=== PATIENT | male | born 1980 | race Caucasian/White ===

== ENCOUNTER 2016-06-29 14:52 | Emergency (ER) | payer MEDICAID ==
--- NOTE | 2016-06-29 15:41 | Emergency Department Record ---
History of Present Illness - General Chief Complaint: Abdominal Pain Stated Complaint: HERNIA Time Seen by Provider: 06/29/16 15:30 Source: Patient Mode of Arrival: Ambulatory - History of Present Illness Initial Comments: The patient states that 7 days ago he was opening up the pool by removing the rolled cover when he dropped it. As he tried to pick it up it was very heavy. Following that he began to have left lower abdominal pain/inguinal region pain. When he is resting the pain level is mild at 3/10. When he lifts, bends, coughs , has BM's, his pain increases to 9-10/10. He wants to know if he has a hernia. He denies f,c,n,v,d,abdominal distention. He had a BM today that was normal, he typically has one every other day. During the straining of the BM his pain became severe. Now it is 3/10. He has no medications, no allergies, and is not a smoker. Onset/Timin -: Week(s) Location: Suprapubic, LLQ Radiation: None Quality: Sharp Consistency: Constant Associated Symptoms: Denies other symptoms - Related Data Home Medications Medication Instructions Recorded Confirmed Last Taken No Home Med [NO HOME MEDS] 06/29/16 06/29/16 Unknown Allergies Allergy/AdvReac Type Severity Reaction Status Date / Time No Known Drug Allergies Allergy Verified 12/10/14 16:22 Travel Screening - Travel/Exposure Within Last 30 Days Have you traveled within the last 30 days?: No - Travel/Exposure Within Last Year Have you traveled outside the [place] in the last year?: No - Additonal Travel Details Have you been exposed to anyone with a communicable illness?: No - Travel Symptoms Symptom Screening: None Review of Systems Reviewed: No additional complaints except as noted below Constitutional: Reports: As per HPI. Denies: Chills, Fever, Malaise, Night sweats, Weakness, Weight change Eyes: Reports: As per HPI. Denies: Eye discharge, Eye pain, Photophobia, Vision change ENT: Reports: As per HPI. Denies: Congestion, Dental pain, Ear pain, Epistaxis , Hearing loss, Throat pain Respiratory: Reports: As per HPI. Denies: Cough, Dyspnea, Hemoptysis, Stridor, Wheezes Cardiovascular: Reports: As per HPI. Denies: Arrhythmia, Chest pain, Dyspnea on exertion, Edema, Murmurs, Orthopnea, Palpitations, Paroxysmal nocturnal dyspnea, Rheumatic Fever, Syncope Endocrine: Reports: As per HPI. Denies: Fatigue, Heat or cold intolerance, Polydipsia, Polyuria Gastrointestinal: Reports: As per HPI. Denies: Abdominal pain, Constipation, Diarrhea, Hematemesis, Hematochezia, Melena, Nausea, Vomiting Genitourinary: Reports: As per HPI. Denies: Dysuria, Frequency, Hematuria, Incontinence, Retention, Testicular pain, Testicular mass, Urgency Musculoskeletal: Reports: As per HPI. Denies: Arthralgia, Back pain, Gout, Joint swelling, Myalgia, Neck pain Skin: Reports: As per HPI. Denies: Bruising, Change in color, Change in hair/ nails, Lesions, Pruritus, Rash Neurological: Reports: As per HPI. Denies: Abnormal gait, Confusion, Headache, Numbness, Paresthesias, Seizure, Tingling, Tremors, Vertigo, Weakness Psychiatric: Reports: As per HPI. Denies: Anxiety, Auditory hallucinations, Depression, Homicidal thoughts, Suicidal thoughts, Visual hallucinations Hematological/Lymphatic: Reports: As per HPI. Denies: Anemia, Blood Clots, Easy bleeding, Easy bruising, Swollen glands Past Medical History - SOCIAL HISTORY Smoking Status: Never smoker Alcohol Use: None Drug Use: Rare Drug Use Detail:: Marijuana - RESPIRATORY Hx Respiratory Disorders: No - CARDIOVASCULAR Hx Cardio Disorders: Yes Hx Hypertension: Yes - NEURO Hx Neuro Disorders: No - GI Hx GI Disorders: No - Hx Genitourinary Disorders: No - ENDOCRINE Hx Endocrine Disorders: No - MUSCULOSKELETAL Hx Musculoskeletal Disorders: No - PSYCH Hx Psych Problems: No - HEMATOLOGY/ONCOLOGY Hx Hematology/Oncology Disorders: No Family Medical History Any Significant Family History?: No Hx Cancer: Grandparents Hx HTN: Father Physical Exam - General General Appearance: Alert, Oriented x3, Cooperative, No acute distress ( ambulates without limping or pain evident.) - Head Head exam: Normal inspection - Eye Eye exam: Normal appearance, PERRL Pupils: Normal accommodation - ENT ENT exam: Normal exam, Mucous membranes moist, Normal external ear exam, Normal orophraynx, TM's normal bilaterally Ear exam: Normal external inspection. negative: External canal tenderness Nasal Exam: Normal inspection. negative: Discharge, Sinus tenderness Mouth exam: Normal external inspection, Tongue normal Teeth exam: Normal inspection. negative: Dental caries Throat exam: Normal inspection. negative: Tonsillar erythema, Tonsillar exudate - Neck Neck exam: Normal inspection, Full ROM. negative: Tenderness - Respiratory Respiratory exam: Normal lung sounds bilaterally. negative: Respiratory distress - Cardiovascular Cardiovascular Exam: Regular rate, Normal rhythm, Normal heart sounds - GI/Abdominal GI/Abdominal exam: Soft, Normal bowel sounds, Tenderness (Left inguinal tenderness reproduces his pain of chief complaint. No bulging or masses noted.) . negative: Distended, Guarding, Hypoactive bowel sounds, Rebound, Rigid - Rectal Rectal exam: Deferred - exam: Deferred, Normal inspection, Other (left inguinal canal palpation increases pain to 10/10, no masses palpated. ). negative: Scrotal swelling, Testicular tenderness, Urethral discharge, Vertical testicular lie - Extremities Extremities exam: Normal inspection, Full ROM, Normal capillary refill. negative: Tenderness - Back Back exam: Reports: Normal inspection, Full ROM. Denies: CVA tenderness (R), CVA tenderness (L), Muscle spasm, Rash noted, Tenderness - Neurological Neurological exam: Alert, CN II-XII intact, Normal gait, Oriented X3, Reflexes normal - Psychiatric Psychiatric exam: Normal affect, Normal mood - Skin Skin exam: Dry, Intact, Normal color, Warm Course Vital Signs 06/29/16 14:57 Temperature 98.0 F Pulse Rate 55 L Respiratory 16 Rate Blood Pressure 174/106 Pulse Ox 98 - Reevaluation(s) Reevaluation #1: Patient is comfortable without having blood work or CT scan at this time as his presentation is classic for a hernia which is NOT incarcerated. He was instructed to return immediately if he begins vomiting, has increased constant pain, develops a mass, etc. 06/29/16 15:48 Reevaluation #2: Patient declined pain medication. 06/29/16 15:57 Medical Decision Making - Management Options MDM Management: Additional Work-up Planned (e.g. ADM/Transfer/OP Study) ( [facility] Dr[facility] Ma) Disposition Disposition: Discharge Clinical Impression: Inguinal hernia, left Condition: (1) Good Instructions: Inguinal Hernia (ED) Additional Instructions: No lifting bending, straining, or sports. See Dr. Ma [facility] as instructed. Return immediatedly if vomiting, persisting increased pain, or new symptoms. tylenol or ibuprofen as directed as needed for pain.
== END 2016-06-29 16:03 | disposition home or self-care (01) ==
LOC: ER 14:52
DX: K40.90 Unilateral inguinal hernia, without obstruction or gangrene, not specified as recurrent (principal)
CPT/HCPCS: 99283

== ENCOUNTER 2019-03-08 04:04 | Emergency (ER) | payer BC, OTHER ==
[2019-03-08] MEDS ORDERED: AMOXICILLIN 500MG CAPSULE PO ONE (04:16)
[2019-03-08] MEDS ORDERED: DEXAMETHASONE SOD PHOSPHATE 10MG/ML VIAL PO ONE (04:16)
--- NOTE | 2019-03-08 04:16 | Emergency Department Record ---
History of Present Illness - General Stated complaint: EAR PAIN Time Seen by Provider: 03/08/19 04:05 Source: Patient Mode of Arrival: Ambulatory Limitations: No limitations - History of Present Illness Initial comments: 38 yo male presents with ear pain. The onset was about four days ago. He has had some congestion and cough. No fevers. He denies any drainage from the ear. His hearing is unchanged. He had tubes as a child in bilateral ears. No swollen glands. No ringing. No rash. MD complaint: Ear pain -: Days(s) Location: R ear Severity: Moderate Quality: Aching Consistency: Constant Improves with: None Worsens with: None Context-Epistaxis: Other Context- Ear: Recent illness Associated Symptoms: Cough - Related Data Previous Rx's Medication Instructions Recorded Amoxicillin 500Mg Capsule [Amoxil] 500 mg PO TID #21 tab 03/08/19 Fluticasone Propionate [Flonase] 2 spray EACH NARES DAILY #1 bottle 03/08/19 Allergies Allergy/AdvReac Type Severity Reaction Status Date / Time No Known Drug Allergies Allergy Unverified 11/13/18 18:04 Review of Systems Constitutional: Denies: Chills, Fever, Malaise, Weakness Eyes: Denies: Eye discharge, Eye pain, Photophobia, Vision change ENT: Reports: Congestion, Ear pain Respiratory: Denies: Cough Cardiovascular: Denies: Chest pain, Edema Endocrine: Denies: Fatigue, Polydipsia, Polyuria Gastrointestinal: Denies: Abdominal pain, Diarrhea, Nausea, Vomiting Genitourinary: Denies: Dysuria, Frequency, Hematuria Musculoskeletal: Denies: Arthralgia, Back pain, Myalgia Skin: Denies: Bruising, Change in color, Rash Neurological: Denies: Headache, Numbness, Weakness Psychiatric: Denies: Anxiety Hematological/Lymphatic: Denies: Easy bleeding, Easy bruising Past Medical History - SOCIAL HISTORY Smoking Status: Never smoker Drug Use: Rare Drug Use Detail:: Marijuana - RESPIRATORY Hx Respiratory Disorders: No - CARDIOVASCULAR Hx Cardio Disorders: Yes Hx Hypertension: Yes - NEURO Hx Neuro Disorders: No - GI Hx GI Disorders: No - Hx Genitourinary Disorders: No - ENDOCRINE Hx Endocrine Disorders: No - MUSCULOSKELETAL Hx Musculoskeletal Disorders: No - PSYCH Hx Psych Problems: No - HEMATOLOGY/ONCOLOGY Hx Hematology/Oncology Disorders: No Family Medical History Hx Cancer: Grandparents Hx HTN: Father Physical Exam - General General Appearance: Alert, Oriented x3, Cooperative, No acute distress Limitations: No limitations - Head Head exam: Atraumatic, Normal inspection - Eye Eye exam: Normal appearance, PERRL. negative: Conjunctival injection, Scleral icterus - ENT ENT exam: Normal exam, Mucous membranes moist, Normal orophraynx. negative: Mucous membranes dry, TM's normal bilaterally (Right TM demonstrates fluid behind the TM with obscurred ossicles, left with chronic scarring) Ear exam: Normal external inspection Nasal Exam: Normal inspection Mouth exam: Normal external inspection Throat exam: Normal inspection - Neck Neck exam: Normal inspection - Respiratory Respiratory exam: Normal lung sounds bilaterally. negative: Respiratory distress - Cardiovascular Cardiovascular Exam: Regular rate, Normal rhythm, Normal heart sounds - Neurological Neurological exam: Alert, CN II-XII intact, Normal gait, Oriented X3. negative: Abnormal gait, Motor sensory deficit - Psychiatric Psychiatric exam: Normal affect, Normal mood. negative: Agitated, Anxious - Skin Skin exam: Dry, Intact, Normal color, Warm Course - Reevaluation(s) Reevaluation #1: 03/08/19 04:32 The TM demonstrates likely serous otitis media No pus. No perforation We discussed the treatment at home and the need for a recheck if not improving Disposition Disposition: Discharge Clinical Impression: Otalgia Disposition: Home, Self-Care Condition: (1) Good Instructions: Earache (ED) Additional Instructions: Call your doctor for the next available follow up appointment to recheck the ear Return to the ER for a recheck immediately if worse, any new concerns or questions Take the prescriptions provided as directed Prescriptions: Amoxicillin 500Mg Capsule [Amoxil] 500 mg PO TID #21 tab Fluticasone Propionate [Flonase] 2 spray EACH NARES DAILY #1 bottle Time of Disposition: 04:21 Quality - Quality Measures Quality Measures: N/A - Blood Pressure Screening Does Patient Have Any of the Following: No Blood Pressure Classification: Hypertensive Reading Systolic Measurement: 167 Diastolic Measurement: 113 Screening for High Blood Pressure: < Pre-Hypertensive BP, F/U Documented > [[id number]] Pre-Hypertensive Follow-up Interventions: Referral to alternative/primary care provider.
== END 2019-03-08 04:28 | disposition home or self-care (01) ==
LOC: ER 04:04
DX: H92.01 Otalgia, right ear (principal); R05 Cough; I10 Essential (primary) hypertension
CPT/HCPCS: 99283